=== PATIENT | female | born 1955 | race Caucasian/White ===

== ENCOUNTER → 2016-10-14 | Outpatient (CLI) | payer OTHER ==
[~2016-10-14] MED LIST: CERTAGEN PO; LIBRIUM PO; LISINOPRIL PO; TRAZODONE PO
--- NOTE | ~2016-10-14 | CT4 ---
[facility] A Service of [facility] RADIOLOGY TEXT RESULTS PATIENT: LIBBY OH LOCATION: [facility] : 53 UNIT #: [id number] AGE: [address]: Kamini Ramachandran MD SEX: F ORDER DR: [id number] [place] [id number] O MR#: [id number] Acc #: [id number] NAME: LIBBY OH : 1955 SEX: F STUDY DATE/TIME: 10/14/2016 11:15 UNIT: [facility] ROOM: STUDY DESCRIPTION: CT Abd and Pelv Wo Cont Attending Physician: Kamini Ramachandran M.D. Referring Physician: Kamini Ramachandran M.D. Ordering Physician: Kamini Ramachandran M.D. Primary Care Physician: Kamini Ramachandran M.D. MEDICAL IMAGING REPORT This report is preliminary unless electronic signature is present. EXAM CT abdomen and pelvis without contrast INDICATIONS Lower abdominal pain for the past year progressively worsening. PROCEDURE Unenhanced CT of the abdomen and pelvis. This CT exam was performed with one or more of the following radiation dose reduction techniques: automatic control, adjustment of mA and/or kV according to patient size, and iterative reconstruction. COMPARISON 01/22/2007 FINDINGS ABDOMEN WITHOUT CONTRAST: Included lung bases clear. Liver spleen adrenal glands pancreas gallbladder unremarkable. Sigmoid diverticula without evidence for active complication. Appendix is normal. Bilateral renal cysts are unchanged. PELVIS WITHOUT CONTRAST: No pelvic mass or fluid. No aggressive appearing bone lesion. IMPRESSION 1. No acute findings in the abdomen or pelvis. 2. Sigmoid diverticula without definitive evidence for complication. Early or mild diverticulitis can be CT occult and if the patient's symptoms persist repeat imaging may be warranted. 3. Appendix is normal [facility] A Service [facility] RADIOLOGY TEXT RESULTS PATIENT: LIBBY OH LOCATION: [facility] : 53 UNIT #: [id number] AGE: [address]: Kamini Ramachandran MD SEX: F ORDER DR: Dictated by... Tomer Yarbrough M.D. THIS IS AN ELECTRONICALLY VERIFIED REPORT Tomer Yarbrough M.D. at 10/18/2016 8:20 AM HEIDI/steve TD: 10/14/2016 15:27 JOB #: [id number] MEDICAL IMAGING REPORT Page 1 of 1
[2016-10-14 09:55] LABS: POC - CREATININE 1.18 mg/dL (0.44-1.03)
== END | disposition home or self-care (01) ==
LOC: SCT 09:25 → CCAT 10:00
PROVIDERS: Family Medicine
DX: K59.00 Constipation, unspecified (principal); K57.30 Diverticulosis of large intestine without perforation or abscess without bleeding
CPT/HCPCS: 74176; 82565